=== PATIENT | female | born 1985 | race Caucasian/White ===

== ENCOUNTER 2025-01-23 07:28 | Outpatient (CLI) | payer OTHER, SELFPAY ==
--- NOTE | ~2025-01-23 | XR_ITS ---
EXAMINATION: XR chest 2V 01/23/2025 07:42 INDICATION: Candidiasis PROCEDURE: 2 view chest COMPARISON: No prior studies for comparison. FINDINGS: The lungs are clear. The cardiomediastinal silhouette is within normal limits. There are no pleural effusions. There is no pneumothorax suspected. IMPRESSION: 1: NO ACUTE CARDIOPULMONARY DISEASE. Reviewed, dictated and finalized at location B.
== END 2025-01-23 07:29 | disposition home or self-care (01) ==
LOC: MICIMG 07:32
PROVIDERS: PCP Physician Assistant; Visit Provider Physician Assistant
DX: B37.9 Candidiasis, unspecified (principal); R22.1 Localized swelling, mass and lump, neck
CPT/HCPCS: 71046

== ENCOUNTER 2025-01-23 12:44 | Outpatient (CLI) | payer OTHER, SELFPAY ==
--- NOTE | ~2025-01-23 | CT_ITS ---
CT scan of the Neck Technique: 2.5 mm axial scans were obtained through the neck after intravenous administration of 75 c c Omnipaque 350. Coronal and sagittal reconstructions of the neck were obtained. Dose reduction techn ique was used on this scan by utilizing automated exposure control and iterative reconstruction techn ique. The dose-length product (DLP) was 438.31 mGy-cm. Clinical History: Neck swelling Findings: There is no evidence of any significant cervical lymphadenopathy. Several small, nonenlarged jugulo- digastric and posterior cervical lymph nodes are noted bilaterally. Parapharyngeal spaces appear norm al bilaterally. The parotid and submandibular glands appear normal. The pharyngeal mucosal spaces appear normal. No soft tissue masses are seen in the neck. The thyroid gland appears normal. Images of the lung apices reveal no abnormalities. Impression: No significant abnormalities noted. Reviewed, dictated and finalized at [facility]. Impression: No significant abnormalities noted.
--- OUTSIDE RECORDS SUMMARY | 2025-01-23 12:59 | XMS_ITS | Encounter Summary ---
[facility] Organization [facility] Address [address] [place] [address] Care Team Providers Care Public Relations Name Role Phone Unavailable Primary Care Provider Unavailabl e Encounter Details Date Type Department Care Team (Late st Contact Info) Description 01/21/2025 External Device Data STL ABSTRACTION Provider, Abstract NO ADDRESS ON FILE Social History Tobacco Use Types Packs/Day Years Used Date Smoking Tobacco: Never Passive Smoke Exposure: Never Smokeless Tobacco: Never Alcohol Use Standard Drinks/Week Comments Never 0 (1 standard drink = 0.6 oz pur e alcohol) Comments No Sex and Gender Information Value Date Recorded Sex Assigned at Not on file Legal Sex Female 2:57 PM EXPLOSIVES HANDLER Gender Identity Not on file Sexual Orientation Not on file documented as of this encounter Plan of Treatment Not on file documented as of this encounter Visit Diagnoses Not on filedocumented in this encounter
--- OUTSIDE RECORDS SUMMARY | 2025-01-23 13:00 | XMS_ITS | Clinical Summary ---
Author Organization [facility] [address] Address [address] [place] [phone] Care Team Providers Care Podiatry Doctor Name Role Phone No, Physician Unavailable Cj Vance DISK RECORDIST Primary Care Provide r Allergies No known active allergies Medications methylPREDNISol one (MEDROL DOSEPACK) 4 mg Dosepack Take as directed on package. 21 tablet 5 Active Additional Information Patient not taking.Reported on 12/20/2024 nystatin 100,000 unit/mL suspension Take 5 mL (500,000 Units total) by mouth 4 (four) times a day for 7 days 140 mL 5 12/28/19 25 nystatin 100,000 unit/mL suspension Take 5 mL (500,000 Units total) by mouth 4 (four) times a day for 10 days 200 mL 5 01/11/20 25 Active Problems No known active problems Encounters Date Type Department Care Team Description 12/20/2024 10:00 AM CDT Therapy [facility] Otolaryngology [address] [facility] [address] [place] [phone] Yolanda Cintron, FUNMILAYO Dysphonia (Primary Dx); Throat pain 12/20/2024 10:00 AM CDT Office Visit [facility] E[facility] [address] [facility] [address] [place] [address] Camden Mclean MD Throat pain; Dysphonia; Globus sensation 12/17/2024 Telephone Center [facility] - [facility] E[facility] [address] [facility] [address] [place] [address] [place] [phone] Kathia Smith, MS 12/13/2024 Telephone Center [facility] ([facility] - [facility] ENT [address] [facility] [address] [place] [address] [place] [phone] Kathia Smith, MS 12/04/2024 Patient Self-Triage [facility] [address] [place] [phone] Mychart, Generic Provider 11/19/2024 6:15 AM TACK COVERER Telemedicine [facility] [address] [place] [phone] Angie Jeff NP Facial swelling (Primary Dx); Sore throat 11/19/2024 Patient Self-Triage [facility] [address] [place] [phone] Mychart, Generic Provider from Last 3 Months Social History Tobacco Use Types Packs/Day Years Used Date Smoking Tobacco: Never Smokeless Tobacco: Never Tobacco Cessation:Counseling Given: Not Answered Comments No Sex and Gender Information Value Date Recorded Sex Assigned at Not on file Legal Sex Female 10:21 PM TACK COVERER Gender Identity Not on file Sexual Orientation Not on file Obstetrics History Last Filed Vital Signs Vital Sign Reading Time Taken Comments Blood Pressure 124/92 10/20/2024 8:05 AM TACK COVERER Pulse 89 12/20/2024 10:29 AM CDT Temperature 37 C (98.6 F) 10/20/2024 8:05 AM TACK COVERER Respiratory Rate 20 10/20/2024 8:05 AM TACK COVERER Oxygen Saturation 98% 12/20/2024 10:29 AM CDT Inhaled Oxygen Concentration - - Weight 81.6 kg (180 lb) 12/20/2024 10:29 AM CDT Height 157.5 cm (5' 2 ) 12/20/2024 10:29 AM CDT Body Mass Index 32.92 12/20/2024 10:29 AM CDT Plan of Treatment Health Maintenance Due Date Last Done Comments Depression Screening 1987 Hepatitis C Screening 1987 Varicella Vaccines (1 of 2 - 13+ 2-dose series) 2000 Hepatitis B Screening 2005 Cervical Cancer Screening 11/29/2020 11/29/2019 Regular Well Visit/Exam 18-64 11/29/2020 11/29/2019 Influenza Vaccine (Season Ended) 2025 DTaP/Tdap/Td Vaccine (2 - Td or Tdap) 01/10/2032 01/09/2022 HPV Vaccines Aged Out No longer eligi ble based on patient's age to complete this topic Pneumococcal vaccine <65 Aged Out No longer eligible based on patient's age to complete this topic Procedures Procedure Name Priority Date/Time Associated Diagnosis Comments PAP IG, HPV-HR Routine 11/29/2019 3:04 PM TACK COVERER Screening for malignant neoplasm of the cervix from Last 3 Months or Most Recently Relevant to Health Maintenance Results * Pap IG, HPV-hr (11/29/2019 3:04 PM TACK COVERER) Clinical indication Comment [facility] - 01 Comment:NEGATIVE FOR INTRAEP ITHELIAL LESION OR MALIGNANCY. Specimen adequacy: Comment [facility] - 01 Comment: Satisfactory for evaluation. Endocervical and/or squamous metaplastic cells (endocervical component) are present. Clinician provided ICD10 Comment [facility] - 01 Comment:Z12.4 Performed by Comment [facility] - 01 Comment:Simone Johnson, Public Information Relations Manager (ASCP) . . [facility] - 01 Note: Comment [facility] - 01 Comment: The Pap smear is a screening test designed to aid in the detection of premalignant and malignant conditions of the uterine cervix. It is not a diagnostic procedure and should not be used as the sole means of detecting cervical cancer. Both false-positive and false-negative reports do occur. Test methodology Comment [facility] - 01 Comment: This liquid based ThinPrep(R) pap test was screened with the use of an image guided system. HPV, high-risk Negative Negative [facility] 02 Comment: This nucleic acid amplification high-risk HPV test detects thirteen high-risk types (16,18,31,33,35,39,45,51,52,56,58,59,68) without differentiation. Cervical 11/29/2019 3:04 PM TACK COVERER 11/29/2019 Narrative [facility] - 12/03/2019 10:06 PM TACK COVERER Performed at: - [facility] [id number] Environmental Safety Specialist: Annamaria Hood MD, Phone: [phone] Performed at: - [facility] [id number] Environmental Safety Specialist: Annamaria Hood MD, Phone: [phone] Specimen Comment: No. of containers..01 ThinPrep Vial Harman Miramontes MD LAB PATHOLOGY ORDERABLES Final Result [facility] - 01 [facility] 02 from Last 3 Months or Most Recently Relevant to Health Maintenance Insurance [facility] HMO/PPO Address: [facility] [address] [place] [address] [facility] HMO/PPO Address: [address] [address] [place] [address] [facility] HMO/PPO Address: [address] [address] [place] [id number] [facility] HMO/PPO Address: [address] [address] [place] [phone] Care Teams Podiatry Doctor Relationship Specialty Start Date End Date Cj Vance NP [address] [place] [address] PCP - General Nurse Practitioner 12/12/24 No, Physician 10/19/24
--- OUTSIDE RECORDS SUMMARY | 2025-01-23 13:00 | XMS_ITS | Data Portability ---
Author Organization [facility] [place] Address [address] [place] [address] [address] [place] [address] Care Team Providers Care Stave Block Splitter Name Role Phone JODEE CUNNINGHAM Primary Care Provider Assessment No assessment recorded. Plan of Treatment Reminders Order Date Submit Date Provider Last Modified By Organization Details Last Modified Time Details Appointments None recorded . Lab pregnanc y test, urine 2022 023 [facility], [address], [address], [place], [address], 3 15:10:16 urinalys is, dipstick 2022 023 [facility] [place], [address], [address], [place], [address], 3 15:10:16 Referral None recorded . Procedures None recorded . Surgeries None recorded . Imaging US, pelvis, complete 2022 023 armida [place], [address], [address], [place], [address], 3 12:20:17 US, pelvis [address], [address], [address], [place], [address], 3 20:37:17 US, transvag inal 2022 023 teresita [place], [address], [place], [address], 20:37:17 Medication Orders None recorded . Patient TargetsNo targets recorded. Patient InstructionsNo instructions recorded. Reason for Referral None Reported. Results Created Date Observation Date Name Description Value Unit Range Abnormal Flag Note LastModifiedBy Organization Detail LastModifiedTime 04/20/20 23 04/20/2023 urina lysis , dipst ick Leukocytes neg Not Available [facility] [address], [place], [address], 04/20/2023 15:09:45 04/20/20 23 04/20/2023 urina lysis , dipst ick Nitrite neg Not Available [place] [address], [place], [address], 04/20/2023 15:09:45 04/20/20 23 04/20/2023 urina lysis , dipst ick Urobilinogen neg Not Available [facility] juliocesar [address], [place], [address], 04/20/2023 15:09:45 04/20/20 23 04/20/2023 urina lysis , dipst ick Protein neg Not Available [place] [address], [place], [address], 04/20/2023 15:09:45 04/20/20 23 04/20/2023 urina lysis , dipst ick pH 5 Not Available [place] [address], [place], [address], 04/20/2023 15:09:45 04/20/20 23 04/20/2023 urina lysis , dipst ick Specific [employer] 1.005 Not Available [facility] dave [address], [place], [address], 04/20/2023 15:09:45 04/20/20 23 04/20/2023 urina lysis , dipst ick Ketone neg Not Available [place] [address], [place], [address], 04/20/2023 15:09:45 04/20/20 23 04/20/2023 urina lysis , dipst ick Bilirubin neg Not Available [facility] [address], [place], [address], 04/20/2023 15:09:45 04/20/20 23 04/20/2023 urina lysis , dipst ick Glucose neg Not Available [place] [address], [place], [address], 04/20/2023 15:09:45 04/20/20 23 04/20/2023 urina lysis , dipst ick Appearance clear yellow Not Available [place] [address], [place], [address], 04/20/2023 15:09:45 04/20/20 23 04/20/2023 pregn anne test, urine HCG negati ve Not Available [place] [address], [place], [address], 04/20/2023 15:09:34 04/24/20 23 04/24/2023 US, pelvi s No observ ation record ed. [facility] [address], [place], [address], 04/24/2023 12:38:43 04/24/20 23 04/24/2023 US, trans vagin al No observ ation record ed. [facility] [address], [place], [address], 04/24/2023 12:38:54 04/24/20 23 04/24/2023 US, pelvi s No observ ation record ed. lukas [address], [place], [address], 04/26/2023 17:28:00 Result Notes None recorded. Procedures Surgical History Date Name Laterality Status Provider Name and Address Organization Details Recorded Time Date of Last Pap [facility]ear [facility]20[facility]2023 14:32:43 Imaging Results Imaging Date Name Status LastModified by Organization Details LastModified Time 04/24/2023 US, pelvis completed [facility] [address], [place], [address], 04/24/2023 12:38:43 04/24/2023 [facility] [address], [place], [address], 04/24/2023 12:38:54 04/24/2023 US, pelvis completed lukas Lew[address], [place], [address], 04/26/2023 17:28:00 Procedure Notes None recorded. Medical Equipment None Reported. Allergies No known drug allergies Medications Name Sig Start Date Stop Date Status Note LastModified by Organization Details LastModified Time metronidazole 500 mg tablet Take 1 tablet every 12 hours by oral route for 7 days. 2022 active Not Available Not Available Not Avai lable Vitals Date Recorded Body height Body mass index (BMI) Body weight Systolic blood pressure Diastolic blood pressure Provider Name and Address Organization Details Last Updated DateTime 04/20/2023 162.56 cm 27.6 kg/m2 21061.37 g 124 mm[Hg] 82 mm[Hg] Reyna Badillophillip [facility] 14:53:49 Date Recorded Body height Body mass index (BMI) Body weight Systolic blood pressure Diastolic blood pressure Provider Name and Address Organization Details Last Updated DateTime 04/26/2023 162.56 cm 27.4 kg/m2 02889.62 g 133 mm[Hg] 84 mm[Hg] Pam Barillas [facility] 16:55:06 Social History Question Answer Notes LastModified by Organizat ion Details LastModified Time Tobacco Smoking Status Never Smoker Karon Burton naila, [facility] 04/24/2023 10:53:36 What Is Your Level Of Alcohol Consumption? None Information not available 04/20/2023 How Many Years Have You Consumed Alcohol? 0 Information not available 04/20/2023 Are You Blind Or Do You Have Difficulty Seeing? No Information n ot available 04/20/2023 What Is Your Level Of Caffeine Consumption? Heavy Information not available 04/20/2023 How Much Tobacco Do You Chew? None Information not available 04/20/2023 In The 14 Days Before Symptom Onset, Have You Had Close Contact With A Laboratory-confirm ed COVID-19 While That Case Was Ill? No Information n ot available 04/20/2023 In The 14 Days Before Symptom Onset, Have You Had Close Contact With A Person Who Is Under Investigation For COVID-19 While That Person Was Ill? No Information not available 04/20/2023 Have You Been To An Area Known To Be High Risk For COVID-19? No Information not available 04/20/2023 Are You Deaf Or Do You Have Serious Difficulty Hearing? No Information not available 04/20/2023 What Type Of Diet Are You Following? REGULAR Information n ot available 04/20/2023 What Is The Highest Grade Or Level Of School You Have Completed Or The Highest Degree You Have Received? 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 No Information not available 04/20/2023 Do You Use Protection During Sex? Usually Information not available 04/20/2023 Do You Use Your Seat Belt Or Car Seat Routinely? Yes Information not available 04/20/2023 Do You Have Smoke And Carbon Monoxide Detectors In Your Home? No Information not available 04/20/2023 How Much Tobacco Do You Smoke? No Information not available 04/20/2023 Do You Feel Stressed (tense, Restless, Nervous, Or Anxious, Or Unable To Sleep At Night)? [id number] Information not available 04/20/2023 Do You Use Any Illicit Or Recreational Drugs? No Information not available 04/20/2023 Do You Use Sunscreen Routinely? Yes Information not available 04/20/2023 How Many Years Have You Smoked Tobacco? 0 Information not available 04/20/2023 Sex: Unknown Functional Status Question Answer Note LastModified by Organizat ion Details LastModified Time Do you have difficulty walking or climbing stairs? No [email or web address] Information not available 04/24/2023 Are you able to walk? YESWOREST Information not available 04/20/2023 Are you able to care for yourself? Yes [email or web address] Information not available 04/24/2023 Do you have difficulty dressing or bathing? No [email or web address] Information not available 04/24/2023 What is your exercise level? Moderate Information not available 04/20/2023 Mental Status None recorded. Family History Nothing Reported. Medical History Condition Response Allergies (Food, seasonal, environmental ) N Other N Breast Cancer N Drug/Latex Allergies/Reactions N Blood Transfusion N Dermatologic Disorders N Lung Disease N Defects or Inherited Disease N Breast Problem N Gestational Diabetes N Hematologic disorders N Anesthesia Complications N History of STI N Deep Vein Thrombosis N Polycystic ovary syndrome N Anxiety Disorder N Autoimmune disease N Arthritis N Infertility N Polyps N Acid Reflux (GERD) N History of abnormal pap N Cancer N Stroke N Varicosities N Neurologic/Epilepsy N Endometriosis N High Cholesterol N Headaches N Fibromyalgia N Kidney Disease N Heart Problems N Kidney or Bladder Problems N Thyroid Problems N GI Problems N Eating Disorder N Anemia N Art (IVF or FET) N Psychiatric Illness N Ovarian Cancer N Diabetes N Pulmonary (TB, Asthma) N Hepatitis/Liver Disease N No Past Medical History N Eczema N Urinary Tract Infection N Abuse/Domestic Violence N Asthma N Trauma/Violence N Depression/ depression N Heart Disease N Pre-Eclampsia N Hypertension N Osteoporosis N Thrombophilias N Gynecological History Statement/Question Response Flow Moderate Date of LMP 04/06/2023 On BCP's at Conception? N N Was last menstrual period normal Y STIs/STDs N HPV Vaccine N Duration of Flow (days) 3 Current Control Method None Frequency of Cycle (Q days) 28 Sexually Active? Y Age of first menstrual cycle 14 Date of Last Pap Smear 04/22/2019 Sexual Problems? Yes Desired Control Method None LMP Approximate N Obstetrics History GPAL:G 1 P 0 0 1 0 Type Value Induced 1 Total 1 Past Encounters Encounter ID Performer Location Encounter Start Date Encounter Closed Date Diagnosis/Indication Diagnosis SNOMED-CT Code Diagnosis ICD10 Code Diagnosis Note [id number] NANY Kennedy [place] [address],[facility] [place] [address] 04/20/2023 14:22:11 04/21/2023 16:40:15 Pain in pelvis 81084064 R10.2 This patient is a 37 -year-old female with pelvic pain. We have agreed to complete the evaluation with pelvic ultrasound . The patient will return after the pelvic ultrasound to discuss those findings and to develop a treatment plan. A comprehens torsten history and physical exam was performed today. We spent over 25 minutes face-to-fa ce. The patient was given precaution s. She will contact clinic if pelvic pain increases in frequency or intensity. Also notify clinic of any new symptoms associated with pelvic pain. She does not appear to have an acute pelvic infection today, but was asked to contact us Immediatel y with nausea, vomiting, fever, chills.RTC for pelvic u/s and f/u [id number] Simran [facility] [address] [address] 04/24/2023 10:53:28 04/24/2023 11:47:26 Pain in pelvis 51340227 R10.2 [id number] NANY Kennedy [place] [address],[facility] [place] [address] 04/26/2023 16:48:43 04/26/2023 17:18:12 Pain in pelvis 50859441 R10.2 reviewed updated TVUS - left ovarian follicle with mild complexity her symptoms have resolvedre commend repeat u/s in 8 weeks to check for resolution encouraged to schedule WWE Time spent in visit is a total of 20 mins with at least 50% of visit consisting of counseling and review of plan of care. Health Concerns Section Related Observation LastModified by Organization Detai ls LastModified Time None Recorded Concern Status LastModified by Organization Details LastModified Time None Recorded Advance Directives Directive None Recorded Payers Encounter Date Sequence Insurance Name Policy Number Policy Kern Covered Member ID Kern Member ID Guarantor Name 04/20/[address] [facility] Marbella [place] Joe [id number] Marbella Joe 04/24/[address] [facility] Marbella [place] Joe [id number] Marbella Diaz 04/26/[address] [facility] Marbella [place] Joe [id number] Marbella Diaz Notes Date Note Type Note Provider Name and Address Organization Details Recorded Time 04/20/2023 text/html 37yo [id number] for evaluation of pelvic painright sided pelvic pain x 1 monthnoticed pain after weight lifting at the gy[facility] her PCP and had normal imaging per patientpain comes and goes, dull acheneg n/v/fneg vaginal symptomsnormal bowel movementsneg urinary symptoms NANY Kennedy [address], [place], [address], [facility] 04/21/2023 11:34:49 04/26/2023 text/html 37yopresents for pelvic u/s f/ushe is no longer experiencing any symptoms NANY Kennedy [address], [place], [address], [facility] 04/26/2023 17:08:26 OBGyn Episode Ob Episode Information Episode Created Date Number of Fetuses Patient Bloodtype Patient rh Status Prepregnancy Weight lbs Domestic Partner Domestic Partner Phone Father Name Environmental Services Aide Status 04/20/20 23 1 CLOSED Fetus Data First Name Last Name Admitted to NICU Weight (g) Sex Living Outcome Pediatric Complications Fetus ID Race Codes Race Delivery Type Rangel Calculation Initial Rangel Date Initial Exam Date Initial Exam Provider Initial Ultrasound Date Last Menstrual Period Date Ultra Sound Weeks Gestation 0 Eighteen To Twenty Week Rangel Update Ultra Sound Date Fundal Height At Umbil Quickening Date Ultra Sound Latest Weeks Gestation Final Rangel Confirmed By Final Rangel Confirmed Date Final Rangel Date Ultra Sound Latest Days Gestation 0 0 Menstrual History Last Menstrual Date Menses Monthly On Bcp Conception Prior Menses Frequency Hcg Plus Date Menarche Onset Age Delivery Information Delivery Date Delivery Type Labor Anesthesia Weeks Gestation Incision Type Labor Labor Length Hrs Delivered By Post Complications Tubal Sterilization Discharge Date Comments 6 Discharge Information Feeding Method Contraceptive Method Maternal HG B and HCT Levels
--- OUTSIDE RECORDS SUMMARY | 2025-01-23 13:00 | XMS_ITS | Patient Health Record ---
Author Organization [facility] Address [address] [place] [address] Care Team Providers Care Chiropractic Neurologist Name Role Phone [facility] Unavailable [phone] ANN-MARIE FOREMAN Unavailable [phone] GERMAN WONG Unavailable [phone] COLLEEN ROGERS Unavailable [phone] Allergies No Known Allergies Reason For Referral Reason Please evaluate and treat Diagnosis 1 Vaginal discharge (N 89.8) Referral Organization [facility] Referring Provider First Name GERMAN Referring Provider Last Name MARVIN Referring Provider Speciality General Pr actice Referred Provider Specialty OB - Gynecol ogy General Notes Ceferino Wren 2023 04:59:09 PM >EMAILED PT Referral Priority Routine Referral Appointment Date 06/11/2024 Medications Medication SIG (Take, Route, Frequency, Duration) Notes Start Date End Date Status Lomaira 8 MG TAKE 1 TABLET BY KUNAL TH , 30 MINUTES BEFORE A MEAL, 3 TIMES PER DAY Oral for 30 Days Active tiZANidine HCl 4 MG 1 tablet at bedtime as needed Orally Once a day for 5 days 02/18/2024 Unknown Clotrimazole-Betamethasone 1-0.05 % 1 application Externally Twice a day for 7 days 02/18/2024 Unknown methylPREDNISolone 4 MG as directed Oral ly DAILY for 6 days 02/18/2024 Unknown Fluconazole 150 MG 1 tablet Orally Once every 73 hours for 9 days 02/18/2024 Unknown Fluconazole 100 MG 1 tablet Orally sheila y for 1 days 09/27/2024 Active Meloxicam 7.5 MG 1 tablet Orally Once a day for 15 days 02/18/2024 Unknown Nystatin 517081 UNIT/ML 4 mL Mouth/Throa t Four times a day for 7 days 09/27/2024 Active Buprenorphine HCl 8 MG Sublingual for 30 Days Unknown Phentermine HCl 37.5 MG Oral for 31 Days Unknown metroNIDAZOLE 500 MG 1 tablet Orally Twi ce a day for 7 days 06/11/2024 Active Naproxen Sodium 550 MG Oral for 7 Days Unknown Social History Tobacco Use: Social History Observation Description Date Details (start date - stop date) Never Smoker NA - NA Tobacco Control (Standard) Question Answer Notes Tobacco use: Nonsmoker Vital Signs Height 63 in 09/27/2024 Patient Reported Normal Blood Pressure Patient Reported Normal Temperature Weight 195 lbs 09/27/2024 Patient Reported Normal Blood Pressure Patient Reported Normal Temperature BMI 34.54 kg/m2 09/27/2024 Patient Reported Normal Blood Pressure Patient Reported Normal Temperature Encounters Encounter Location Date Provider Diagnosis [facility] [address] [place] [address] 02/18/2024 ANN-MARIE SAGHIR Neck pain M54.2 and Vaginal itching N89.8 [facility] [address] [place] [address] 03/09/2024 COLLEEN KEN Abdominal pain, unspecified abdominal location R10.9 [facility] [address] [place] [address] 06/11/2024 GERMAN DURINKA Vaginal discharge N89.8 [facility] [address] [place] [address] 09/27/2024 GERMAN DURINKA Oral thrush B37.0 Assessments Encounter Date Diagnosis (ICD Code) Assessment Notes Treatment Notes Treatment Clinical Notes Section Notes 02/18/2024 Neck pain (ICD-10 - M54.2) TREATMENT PLAN Patient presents with likely musculoskeletal pain. There are no new neurologic symptoms this patient is reporting requiring urgent in-person evaluation. Pain appears to be most likely musculoskeletal but there may be a component of nerve pain present in this complex scenario. We can only provide supportive care that focuses on MSK pain. 1. We have provided meloxicam as needed for a short course (dont take other NSAIDS with this like ibuprofen/aleve/ naproxen) and an oral steroids. 2. If localized pain, particularly at a joint or local muscle area, try over the counter topical diclofenac 1% gel a few times per day. Lidocaine patches, ice/hot patches may also help over the counter. 5. Please followup with your PCP or an in-person physician for any imaging or stronger medications.[facility] EDUCATION: NECK PAIN Your Care Instructions You can have neck pain anywhere from the bottom of your head to the top of your shoulders. It can spread to the upper back or arms. Injuries, painting a ceiling, sleeping with your neck twisted, staying in one position for too long, and many other activities can cause neck pain. Most neck pain gets better with home care. Your doctor may recommend medicine to relieve pain or relax your muscles. He or she may suggest exercise and physical therapy to increase flexibility and relieve stress. You may need to wear a special (cervical) collar to support your neck for a day or two. Follow-up care is a darby part of your treatment and safety. Be sure to make and go to all appointments, and call your doctor if you are having problems. It's also a good idea to know your test results and keep a list of the medicines you take. How can you care for yourself at home? Try using a heating pad on a low or medium setting for 15 to 20 minutes every 2 or 3 hours. Try a warm shower in place of one session with the heating pad. You can also try an ice pack for 10 to 15 minutes every 2 to 3 hours. Put a thin cloth between the ice and your skin. Take pain medicines exactly as directed. If the doctor gave you a prescription medicine for pain, take it as prescribed. If you are not taking a prescription pain medicine, ask your doctor if you can take an dymv-wtz-jxzqisq medicine. If your doctor recommends a cervical collar, wear it exactly as directed. When should you call for help? Call your doctor now or seek immediate medical care if: You have new or worsening numbness in your arms, buttocks or legs. You have new or worsening weakness in your arms or legs. (This could make it hard to stand up.) You lose control of your bladder or bowels. Watch closely for changes in your health, and be sure to contact your doctor if: Your neck pain is getting worse. You are not getting better after 1 week. You do not get better as expected. 02/18/2024 Vaginal itching (ICD-10 - N89.8) TREATMENT PLAN: FEMALE Patient here with vaginal irritative symptoms. Her symptoms are suspected to be most likely consistent with a vaginal yeast infection based on the symptoms provided in this limited form of medical care. History is limited to what is provided by the patient. 1. Will treat with fluconazole 150mg once now followed by additional doses once every 72 hours. 2. If symptoms do not improve, please let us know as we can then obtain further testing such as urinalysis or STD testing, if indicated, or choose a different treatment modaility based on symptoms. 3. If sexually active at all, always obtain testing prior to taking new medication we will prescribe.PATIEN T EDUCATION Your Care Instructions Candidiasis (say oxj-rks-JO-uh-s us ) is a yeast infection. Yeast normally lives in your body. But it can cause problems if your body's defenses don't work as they should. Some medicines can increase your chance of getting a yeast infection. These include antibiotics, steroids, and cancer drugs. And some diseases like AIDS and diabetes can make you more likely to get yeast infections. There are different types of yeast infections. Thrush is a yeast infection in the mouth. It usually occurs in people with weak immune systems. It causes white patches inside the mouth and throat. Yeast infections of the skin usually occur in skin folds where the skin stays moist. They cause red, oozing patches on your skin. Babies can get these infections under the diaper. People who often wear gloves can get them on their hands. Many women get vaginal yeast infections. They are most common when women take antibiotics. These infections can cause the vagina to itch and burn. They also cause white discharge that looks like cottage cheese. In rare cases, yeast infects the blood. This can cause serious disease. This kind of infection is treated with medicine given through a needle into a vein (I.V.). After you start treatment, a yeast infection usually goes away quickly. But if your immune system is weak, the infection may come back. Tell your doctor if you get yeast infections often. Follow-up care is a darby part of your treatment and safety. Be sure to make and go to all appointments, and call your doctor if you are having problems. It's also a good idea to know your test results and keep a list of the medicines you take. How can you care for yourself at home? Take your medicines exactly as prescribed. Call your doctor if you think you are having a problem with your medicine. Use antibiotics only as directed by your doctor. Eat yogurt with live cultures. It has bacteria called lactobacillus. It may help prevent some types of yeast infections. Keep your skin clean and dry. Put powder on moist places. If you are using a cream or suppository to treat a vaginal yeast infection, don't use condoms or a diaphragm. Use a different type of control. Eat a healthy diet and get regular exercise. This will help keep your immune system strong. When should you call for help? Watch closely for changes in your health, and be sure to contact your doctor if: You do not get better as expected. 03/09/2024 Abdominal pain, unspecified abdominal location (ICD-10 - R10.9) Unable to assess or treat your symptoms using this asynchronous platform. Please seek in person care at your nearest health clinic for further evaluation. 06/11/2024 Vaginal discharge (ICD-10 - N89.8) TREATMENT PLAN: METRONIDAZOLE MEDICATION Patient presents with symptoms consistent with possible bacterial vaginosis. She has not reported positive STI test. Her medical history and symptoms are limited to what is provided. There are no high risk symptoms reported that require urgent evaluation in person based on what is provided. She has not reported . 1. Will treat with metronidazole 500mg twice daily for 7 days. 2. If patient has any risk factors for STD (sexually active at all), she should consider STD testing, particularly if symptoms do not improve. 3. If sexually active, obtain test prior to starting any medications. 4. Recommend follow up in 3 days.PATIENT EDUCATION: Bacterial vaginosis is a condition in which there is excess growth of certain bacteria that are normally found in the vagina. Symptoms often include abnormal ruiz or yellow discharge with a fishy odor. It is not considered an infection that is spread through sexual contact. Symptoms can be annoying and uncomfortable. But bacterial vaginosis does not usually cause other health problems. However, in some cases it can lead to more serious issues. While bacterial vaginosis may go away on its own, most doctors use antibiotics to treat it. You may have been prescribed pills or vaginal cream. With treatment, bacterial vaginosis usually clears up in 5 to 7 days. Follow-up care is a darby part of your treatment and safety. Be sure to make and go to all appointments, and call your doctor if you are having problems. It's also a good idea to know your test results and keep a list of the medicines you take. How can you care for yourself at home? Take your antibiotics as directed. Do not stop taking them just because you feel better. You need to take the full course of antibiotics. Do not eat or drink anything that contains alcohol if you are taking metronidazole or tinidazole. Keep using your medicine if you start your period. Use pads instead of tampons while using a vaginal cream or suppository. Tampons can absorb the medicine. Wear loose cotton clothing. Do not wear nylon and other materials that hold body heat and moisture close to the skin. Do not scratch. Relieve itching with a cold pack or a cool bath. Do not wash your vulva more than once a day. Use plain water or a mild, unscented soap. Do not douche. When should you call for help? Call your doctor now or seek immediate medical care if: You have a fever. You have new or worse pain in your vagina or pelvis. Watch closely for changes in your health, and be sure to contact your doctor if: You have new or worse vaginal itching or discharge. You have unexpected vaginal bleeding. You are not getting better as expected. Your symptoms return after you finish the course of your medicine. 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 Oral candidiasis: Possible due to fungal nail infection and white/yellow patches on tonsils. 2. Glossitis: Tongue numbness may be related to inflammation of the tongue. 3. Hypothyroidism: Fatigue and sore throat can be associated with thyroid dysfunction. Further evaluation and diagnostic tests are recommended to confirm the diagnosis and provide appropriate treatment. 02/18/2024 Other Follow the treatment plan as indicated by the provider. Take any medications as prescribed. If you have any questions about your prescription, ask the pharmacist. Call 911 anytime you think you may need emergency care. For example, call if:You have severe trouble breathing.You have a seizure.Call your doctor now or seek immediate medical care if:You have trouble breathing.You have a fever with a stiff neck or a severe headache.You have pain or pressure in your chest or belly.You have a fever or cough that returns after getting better.You feel very sleepy, dizzy, or confused.You are not urinating.You have severe muscle pain.You have severe weakness, or you are unsteady.You have medical conditions that are getting worse.Watch closely for changes in your health, and be sure to contact your doctor if:You do not get better as expected.You are having a problem with your medicine. Follow the treatment plan as indicated by the provider. Take any medications as prescribed. If you have any questions about your prescription, ask the pharmacist. Call 911 anytime you think you may need emergency care. For example, call if:You have severe trouble breathing.You have a seizure.Call your doctor now or seek immediate medical care if:You have trouble breathing.You have a fever with a stiff neck or a severe headache.You have pain or pressure in your chest or belly.You have a fever or cough that returns after getting better.You feel very sleepy, dizzy, or confused.You are not urinating.You have severe muscle pain.You have severe weakness, or you are unsteady.You have medical conditions that are getting worse.Watch closely for changes in your health, and be sure to contact your doctor if:You do not get better as expected.You are having a problem with your medicine. You participated in a [employer] [employer] request, considered an asynchronous visit where you provide your symptoms and medical history, and a treatment plan is formulated based on your submission. A treatment plan and patient education were provided based on your submission. If symptoms persist or worsen, you should seek in-person care or call 911 immediately for further evaluation. Risks, benefits, and side effects of medications (if any) discussed with patient, who agreed to the treatment plan.Patient's condition was stable at the end of the televisit. Follow-up instructions provided, including:Cam redding next appointmentKatt lopez symptomsAdhering to treatment planContacting clinic with concernsPatient understood and agreed to comply with the follow-up plan. 03/09/2024 Other Follow the treatment plan as indicated by the provider. Take any medications as prescribed. If you have any questions about your prescription, ask the pharmacist. Call 911 anytime you think you may need emergency care. For example, call if:You have severe trouble breathing.You have a seizure.Call your doctor now or seek immediate medical care if:You have trouble breathing.You have a fever with a stiff neck or a severe headache.You have pain or pressure in your chest or belly.You have a fever or cough that returns after getting better.You feel very sleepy, dizzy, or confused.You are not urinating.You have severe muscle pain.You have severe weakness, or you are unsteady.You have medical conditions that are getting worse.Watch closely for changes in your health, and be sure to contact your doctor if:You do not get better as expected.You are having a problem with your medicine. You participated in a [employer] Rx request, considered an asynchronous visit where you provide your symptoms and medical history, and a treatment plan is formulated based on your submission. A treatment plan and patient education were provided based on your submission. If symptoms persist or worsen, you should seek in-person care or call 911 immediately for further evaluation. 06/11/2024 Other Follow the treatment plan as indicated by the provider. Take any medications as prescribed. If you have any questions about your prescription, ask the pharmacist. Call 911 anytime you think you may need emergency care. For example, call if:You have severe trouble breathing.You have a seizure.Call your doctor now or seek immediate medical care if:You have trouble breathing.You have a fever with a stiff neck or a severe headache.You have pain or pressure in your chest or belly.You have a fever or cough that returns after getting better.You feel very sleepy, dizzy, or confused.You are not urinating.You have severe muscle pain.You have severe weakness, or you are unsteady.You have medical conditions that are getting worse.Watch closely for changes in your health, and be sure to contact your doctor if:You do not get better as expected.You are having a problem with your medicine. You participated in a [employer] Rx request, considered an asynchronous visit where you provide your symptoms and medical history, and a treatment plan is formulated based on your submission. A treatment plan and patient education were provided based on your submission. If symptoms persist or worsen, you should seek in-person care or call 911 immediately for further evaluation. 09/27/2024 Other Follow the treatment plan as indicated by the provider. Take any medications as prescribed. If you have any questions about your prescription, ask the pharmacist. Call 911 anytime you think you may need emergency care. For example, call if:You have severe trouble breathing.You have a seizure.Call your doctor now or seek immediate medical care if:You have trouble breathing.You have a fever with a stiff neck or a severe headache.You have pain or pressure in your chest or belly.You have a fever or cough that returns after getting better.You feel very sleepy, dizzy, or confused.You are not urinating.You have severe muscle pain.You have severe weakness, or you are unsteady.You have medical conditions that are getting worse.Watch closely for changes in your health, and be sure to contact your doctor if:You do not get better as expected.You are having a problem with your medicine. Risks, benefits, and side effects of medications (if any) discussed with patient, who agreed to the treatment plan.Patient's condition was stable at the end of the televisit. Follow-up instructions provided, including:Cam redding next appointmentKatt lopez symptomsAdhering to treatment planContacting clinic with concernsPatient understood and agreed to comply with the follow-up plan. 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 Oral candidiasis: Possible due to fungal nail infection and white/yellow patches on tonsils. 2. Glossitis: Tongue numbness may be related to inflammation of the tongue. 3. Hypothyroidism: Fatigue and sore throat can be associated with thyroid dysfunction. Further evaluation and diagnostic tests are recommended to confirm the diagnosis and provide appropriate treatment. Plan Of Treatment Pending Test Test Name Order Date HCG, TOTAL, QL (8435) 06/11/2024 SureSwab(R) Advanced Bacterial Vaginosis (BV), CT/NG, TMA (86953) 06/11/2024 Insurance Providers Payer Name Payer Address Payer Phone Subscriber Number Group Number Insured Name Patient Relationship to Insured Coverage Start Date Coverage End Date [facility] [address] [address] [place] [address] [phone] [id number] Marbella Diaz Self - patient is the insured
--- OUTSIDE RECORDS SUMMARY | 2025-01-23 13:00 | XMS_ITS | Referral Summary ---
Author Organization [facility] [address] Address [address] [place] [phone] Care Team Providers Care Cardiac Cath Technician Name Role Phone No, Physician Unavailable Cj Vance NP Primary Care Provide r Encounters Date Type Department Care Team Description 12/20/2024 10:00 AM CDT Therapy [facility] [address] [facility] [address] [place] [phone] Yolanda Cintron SLP Dysphonia (Primary Dx); Throat pain 12/20/2024 10:00 AM CDT Office Visit [facility] [address] [facility] Office Building [address] [place] [phone] Camden Mclean MD Throat pain; Dysphonia; Globus sensation 12/17/2024 [facility]phone [facility] - [facility] [address] [facility] [address]th [place] [address] [place] [phone] Kathia Smith, MS 12/13/2024 Telephone [facility] ([facility] - [facility] [address] [facility] [address]th [place] [address] [place] [phone] Kathia Smith, MS 12/04/2024 Patient Self-Triage [facility] HealthCare/ Physicians [facility] [place] [address] Mychart, Generic Provider 11/19/2024 Patient Self-Triage [facility] [address] [place] [address] Mychart, Generic Provider 11/19/2024 6:15 AM ASSESSMENT TECHNICIAN Telemedicine [facility] Medical [facility] Virtual Care [address] [place] [phone] Angie Jeff NP Facial swelling (Primary Dx); Sore throat from Last 3 Months Allergies No known active allergies Medications methylPREDNISol one (MEDROL DOSEPACK) 4 mg Dosepack Take as directed on package. 21 tablet Active Additional Information Patient not taking.Reported on [...] 25 Active Problems No known active problems Social History Tobacco Use Types Packs/Day Years Used Date Smoking Tobacco: Never Smokeless Tobacco: Never Tobacco Cessation:Counseling Given: Not Answered Comments No Sex and Gender Information Value Date Recorded Sex Assigned at Not on file Legal Sex Female 10:21 PM ASSESSMENT TECHNICIAN Gender Identity Not on file Sexual Orientation Not on file Last Filed Vital Signs Vital Sign Reading Time Taken Comments Blood Pressure 124/92 10/20/2024 8:05 AM ASSESSMENT TECHNICIAN Pulse 89 12/20/2024 10:29 AM CDT Temperature 37 C (98.6 F) 10/20/2024 8:05 AM ASSESSMENT TECHNICIAN Respiratory Rate 20 10/20/2024 8:05 AM ASSESSMENT TECHNICIAN Oxygen Saturation 98% 12/20/2024 10:29 AM CDT Inhaled Oxygen Concentration - - Weight 81.6 kg (180 lb) 12/20/2024 10:29 AM CDT Height 157.5 cm (5' 2 ) 12/20/2024 10:29 AM CDT Body Mass Index 32.92 12/20/2024 10:29 AM CDT Plan of Treatment Not on file Procedures Procedure Name Priority Date/Time Associated Diagnosis Comments PAP IG, HPV-HR Routine 11/29/2019 3:04 PM ASSESSMENT TECHNICIAN Screening for malignant neoplasm of the cervix from Last 3 Months or Most Recently Relevant to Health Maintenance Results * Pap IG, HPV-hr (11/29/2019 3:04 PM ASSESSMENT TECHNICIAN) Clinical indication Comment [facility] - 01 Comment:NEGATIVE FOR INTRAEP ITHELIAL LESION OR MALIGNANCY. Specimen adequacy: Comment [facility] - 01 Comment: Satisfactory for evaluation. Endocervical and/or squamous metaplastic cells (endocervical component) are present. Clinician provided ICD10 Comment [facility] - 01 Comment:Z12.4 Performed by Comment [facility] - 01 Comment:Simone Johnson, Director Of Social Media Marketing (ASCP) . . [facility] - 01 Note: [...] (16,18,31,33,35,39,45,51,52,56,58,59,68) without differentiation. Cervical 11/29/2019 3:04 PM ASSESSMENT TECHNICIAN 11/29/2019 Narrative [facility] - 12/03/2019 10:06 PM ASSESSMENT TECHNICIAN Performed at: - [facility] [id number] Cold Patcher: Annamaria Hood MD, Phone: [phone] Performed at: - [facility] [id number] Cold Patcher: Annamaria Hood MD, Phone: [phone] Specimen Comment: No. of containers..01 ThinPrep Vial Harman Miramontes MD LAB PATHOLOGY ORDERABLES Final Result [facility] - 01 LAB [place] 02 from Last 3 Months or Most Recently Relevant to Health Maintenance Insurance [facility] PLUS [facility] PLUS [facility] CHOICE PLUS [facility] CHOICE PLUS Care Teams Cardiac Cath Technician Relationship Specialty Start Date End Date Cj Vance NP [address] [place] [address] PCP - General Nurse Practitioner 12/12/24 No, Physician 10/19/24
--- OUTSIDE RECORDS SUMMARY | 2025-01-23 13:00 | XMS_ITS | Clinical Summary ---
Author Organization [facility] Address [address] [place] [phone] Care Team Providers Care [employer] Dispatcher Name Role Phone Unavailable Primary Care Provider Unavailabl e Allergies No known active allergies Medications nystatin (MYCOSTATIN) 100,000 unit/mL suspension Swish and swallow 5 mL by mouth four times daily 200 mL 10/12/2024 3:46 PM COMPRESSOR OPERATOR 10/12/2024 Active fluconazole (DIFLUCAN) 100 mg tablet Take 2 tablets by mouth as soon as possible on Day 1, Then take 1 tablet once daily for 7 days. 9 Tablet 10/19/2024 12:54 PM COMPRESSOR OPERATOR 10/19/2024 Active Active Problems No known active problems Encounters Date Type Department Care Team Description 01/21/2025 External Device Data [facility] Provider, Abstract 12/25/2024 External Device Data [facility] Provider, Abstract 12/25/2024 External Device Data [facility] Provider, Abstract 12/14/2024 External Device Data [facility] Provider, Abstract 12/13/2024 External Device Data [facility] Provider, Abstract 12/10/2024 External Device Data [facility] Provider, Abstract 11/26/2024 External Device Data [facility] Provider, Abstract 10/31/2024 External Device Data [facility] Provider, Abstract 10/30/2024 External Device Data [facility] Provider, Abstract 10/29/2024 External Device Data [facility] Provider, Abstract from Last 3 Months Social History Tobacco Use Types Packs/Day Years Used Date Smoking Tobacco: Never Passive Smoke Exposure: Never Smokeless Tobacco: Never Tobacco Cessation:Counseling Given: Not Answered Alcohol Use Standard Drinks/Week Comments Never 0 (1 standard drink = 0.6 oz pur e alcohol) Comments No Sex and Gender Information Value Date Recorded Sex Assigned at Not on file Legal Sex Female 2:57 PM COMPRESSOR OPERATOR Gender Identity Not on file Sexual Orientation Not on file Last Filed Vital Signs Vital Sign Reading Time Taken Comments Blood Pressure 128/84 09/23/2024 3:12 PM COMPRESSOR OPERATOR Pulse 79 09/23/2024 3:12 PM COMPRESSOR OPERATOR Temperature 36.8 C (98.2 F) 09/23/2024 3:12 PM COMPRESSOR OPERATOR Respiratory Rate 18 09/23/2024 3:12 PM COMPRESSOR OPERATOR Oxygen Saturation 99% 09/23/2024 3:12 PM COMPRESSOR OPERATOR Inhaled Oxygen Concentration - - Weight 83.9 kg (185 lb) 09/23/2024 3:12 PM COMPRESSOR OPERATOR Height 154.9 cm (5' 1 ) 09/23/2024 3:12 PM COMPRESSOR OPERATOR Body Mass Index 34.96 09/23/2024 3:12 PM COMPRESSOR OPERATOR Plan of Treatment Health Maintenance Due Date Last Done Comments Pre-Diabetes and Diabetes Screening 1987 HEPATITIS B VACCINES (1 of 3 - 19+ 3-dose series) 2006 HPV/Cotest (21-29) 2008 PAP SMEAR 2008 CERVICAL CANCER SCREENING 2017 HPV/Cotest (30-65) 2017 PAP SMEAR 2017 INFLUENZA VACCINE (#1) 2024 DTAP/TDAP/TD VACCINES (2 - T d or Tdap) 01/10/2032 01/09/2022 HPV VACCINES Aged Out No longer eligi ble based on patient's age to complete this topic Insurance Jaree [facility] [id number] [employer] [place] [employer] (INTERNAL) [facility]
--- OUTSIDE RECORDS SUMMARY | 2025-01-23 13:01 | XMS_ITS | Clinical Summary ---
Author Organization [facility] Address [address] [facility] [place] [address] Care Team Providers Care Filler Picker Name Role Phone Unavailable Primary Care Provider Unavailabl e Source Comments [facility],non-owned Affiliates and Associated Physician Practices is amultiple site organization consisting of ambulatory clinics and hospital sitesin [place], [place], [place] and [place]. This disclosure is being madepursuant to the Care Everywhere program and may not contain all information available regarding this patient. Last updated 18.Voice123 Allergies No known active allergies Medications * Be aware that medications may not be up to date on this document. Alwaysverify current medications with the patient. buprenorphine (SUBUTEX) 8 MG tablet DISSOLVE 1 TABLET UNDER THE TONGUE THREE TIMES DAILY ALLOW TABLET TO DISSOLVE SLOWLY IN MOUTH WITHOUT CHEWING OR SWALLOWING 2 Active traZODone (DESYREL) 50 MG tablet Take 50-100 mg by mouth at bedtime 2 Active oxyCODONE-aceta minophen (PERCOCET) 5-325 MG tablet Take 1 (one) tablet by mouth every 6 hours as needed for Pain 20 tablet 2 Active Additional Information Patient not taking.Reported on 01/26/2022 lidocaine (LIDODERM) 5 % patch Apply 1 (one) patch to skin once daily 15 patch 2 Active cyclobenzaprine (FLEXERIL) 10 MG tablet Take 1 (one) tablet by mouth 3 times daily as needed for Muscle Spasms 15 tablet 2 Active diclofenac sodium EC (VOLTAREN) 75 MG tablet Take 1 (one) tablet by mouth 2 times daily as needed 15 tablet 2 Active Immunizations Immunization Administration Dates Next Due HEP A VACCINE, ADULT 09/09/2017 TDAP (7yrs+) 01/09/2022 Social History Tobacco Use Types Packs/Day Years Used Date Smoking Tobacco: Never Smokeless Tobacco: Never Alcohol Use Standard Drinks/Week Comments No 0 (1 standard drink = 0.6 oz pur e alcohol) AUDIT-C Answer Date Recorded Q1: How often do you have a drink containing alc ohol? Never 03/09/2022 Average Number of Drinks Not on file 022 Frequency of Binge Drinking Not on file 10/2021 PHQ-2 Answer Date Recorded PHQ2 TOTAL SCORE 2 03/24/2023 Comments No Sex and Gender Information Value Date Recorded Sex Assigned at Not on file Legal Sex Female 2:09 PM CDT Gender Identity Not on file Sexual Orientation Not on file Last Filed Vital Signs Vital Sign Reading Time Taken Comments Blood Pressure 156/94 07/10/2024 4:01 AM CDT Pulse 88 07/10/2024 4:01 AM CDT Temperature 36.7 C (98 F) 07/10/2024 4:01 AM CDT Respiratory Rate 20 07/10/2024 4:01 AM CDT Oxygen Saturation 96% 07/10/2024 4:01 AM CDT Inhaled Oxygen Concentration - - Weight 77.1 kg (170 lb) 03/24/2023 3:27 PM CDT Height 157.5 cm (5' 2 ) 03/24/2023 3:27 PM CDT Body Mass Index 31.09 03/24/2023 3:27 PM CDT Plan of Treatment Health Maintenance Due Date Last Done Comments PAP SMEAR 1987 HIV SCREENING 2002 HEPATITIS C SCREENING 06/17/2005 HEPATITIS B VACCINE (1 of 3 - 19+ 3-dose series) 2006 HEPATITIS A VACCINE (2 of 2 - Risk 2-dose series) 03/10/2018 09/09/2017 COVID-19 VACCINE (3 - 2023-2 5 season) 2024 07/24/2021, 06/24/2021 DEPRESSION SCREENING 10/09/2024 03/24/2023 INFLUENZA VACCINE (Season Ended) 2025 DTAP/TDAP/TD VACCINES (2 - T d or Tdap) 01/10/2032 01/09/2022 ZOSTER VACCINE (1 of 2) 2037 HIB VACCINE Aged Out No longer eligi ble based on patient's age to complete this topic HPV VACCINE Aged Out No longer eligi ble based on patient's age to complete this topic MENINGOCOCCAL (Group B) VACCINE SHARED DECISION-MAKING Aged Out No longer eligible based on patient's age to complete this topic MENINGOCOCCAL GROUPS A/C/Y/W VACCINE Aged Out No longer eligible b ased on patient's age to complete this topic PNEUMOCOCCAL VACCINE Aged Out No long er eligible based on patient's age to complete this topic Insurance [facility] Member Subscriber Plan / Payer (Ef fective 2022-Present) Name:Marbella Diaz Relation to Subscriber:Self Name:Marbella Diaz Payer ID:[id number] (NAIC) Group ID:Not on file Type:[employer] Address: [address] CARE [facility] [employer]IAN LIABILITY [facility] [employer]
--- OUTSIDE RECORDS SUMMARY | 2025-01-23 13:01 | XMS_ITS ---
Author Organization [facility] Address [address] [place] [address] Care Team Providers Care Insurance Solicitor Name Role Phone GERMAN WONG Unavailable [phone] Allergies No Known Allergies Reason For Referral Reason Please evaluate and treat Diagnosis 1 Vaginal discharge (N 89.8) Referral Organization [facility] Referring Provider First Name GERMAN Referring Provider Last Name MARVIN Referring Provider Speciality General Pr actice Referred Provider Specialty OB - Gynecol ogy General Notes Ceferino Wren 2023 04:59:09 PM >EMAILED PT Referral Priority Routine Referral Appointment Date 06/11/2024 REASON FOR VISIT Sexual Health / Urinary, Patient requesting service from promotional campaign vv Medications Medication SIG (Take, Route, Frequency, Duration) Notes Start Date End Date Status Clotrimazole-Betamethasone 1-0.05 % 1 application Externally Twice a day for 7 days 02/18/2024 Unknown tiZANidine HCl 4 MG 1 tablet at bedtime as needed Orally Once a day for 5 days 02/18/2024 Unknown metroNIDAZOLE 500 MG 1 tablet Orally Twi ce a day for 7 days 06/11/2024 Active Fluconazole 150 MG 1 tablet Orally Once every 73 hours for 9 days 02/18/2024 Unknown Lomaira 8 MG TAKE 1 TABLET BY KUNAL TH , 30 MINUTES BEFORE A MEAL, 3 TIMES PER DAY Oral for 30 Days Active Naproxen Sodium 550 MG Oral for 7 Days Unknown Meloxicam 7.5 MG 1 tablet Orally Once a day for 15 days 02/18/2024 Unknown Phentermine HCl 37.5 MG Oral for 31 Days Unknown methylPREDNISolone 4 MG as directed Oral ly DAILY for 6 days 02/18/2024 Unknown Buprenorphine HCl 8 MG Sublingual for 30 Days Unknown Social History Tobacco Use: Social History Observation Description Date Details (start date - stop date) Never Smoker NA - NA Tobacco Control (Standard) Question Answer Notes Tobacco use: Nonsmoker Vital Signs Height 63 in 06/11/2024 Weight 185 lbs 06/11/2024 BMI 32.77 kg/m2 06/11/2024 Patient Reported Normal Bloo d PresurePatient Reported Normal Temperature Encounters Encounter Location Date Provider Diagnosis [facility] [address] [place] [address] 06/11/2024 GERMAN WONG Vaginal discharge N89.8 Assessments Encounter Date Diagnosis (ICD Code) Assessment Notes Treatment Notes Treatment Clinical Notes Section Notes 06/11/2024 Vaginal discharge (ICD-10 - N89.8) TREATMENT [...] you finish the course of your medicine. 06/11/2024 Other Follow the treatment plan as [...] or call 911 immediately for further evaluation. Plan Of Treatment Medication Medication Name Sig Start Date Stop Date Notes metroNIDAZOLE 500 MG 1 tablet Orally Twi ce a day for 7 days 06/11/2024 Treatment Notes Assessment Notes Vaginal discharge TREATMENT PLAN: METRONIDAZOLE MEDICATION Patient presents with [...] to 7 days. Follow-up care is a dabry part of your treatment and safety. Be [...] you finish the course of your medicine. Other Follow the treatment plan as indicated [...] are having a problem with your medicine. Pending Test Test Name Order Date HCG, TOTAL, QL (8435) 06/11/2024 SureSwab(R) Advanced Bacterial Vaginosis (BV), CT/NG, TMA (72814) 06/11/2024 Referrals Referral Date Details 06/11/2024 06/11/2024, Please e valuate and treat Next Appt Details Follow Up: PCP, 2-3D, Reason : Progress Notes * Jamie DIAZOB:[birth year] (38 yo F)Acc No.[id number]:06/11/2024 Patient: Marbella MULLINS Provider: Chica WONG MD :[id number] A ge:38 Y S ex:Female Date:06/11/2024 Phone: Address:[address] [place], [place] [phone] Subjective: * Chief Complaints: * 1 . Sexual Health / Urinary. 2. Patient requesting service from promotional campaign vv. * HPI: T eleHealth Complaint History: Reason for visit:. 38 year-old female, not (to the best of the patient's knowledge), presents with vaginal discharge for a duration of 1 days. Medications: No. Habits: No high risk sexual behavior. Risk Factors: No recent exposure to allergen. * ROS: A ll Other Systems: Review of Systems (ROS) S ee HPI for details. T he patient is also suffering from vaginal irritation (severity mild), itching (location skin of genitalia) and unusual vaginal odor. The patient denies the following: vaginal burning, abnormal vaginal bleeding, vaginal discomfort, vaginal dryness, curdlike vaginal discharge, fever, rash, scaly skin, skin ulcers, shortness of breath, swelling of face, tongue swelling, pelvic pain and pain when passing urine. * Medical History: D enies. * Surgical History: D enies Past Surgical History. * Hospitalization/Major Diagno stic Procedure: D enies Past Hospitalization. * Family History: DENIES. * Social History: T obacco Use: T obacco Control (Standard) T obacco use: N onsmoker D rugs/Alcohol: D o you drink alcohol?: No. * Medications: T aking Lomaira 8 MG Tablet TAKE 1 TABLET BY MOUTH , 30 MINUTES BEFORE A MEAL, 3 TIMES PER DAY Oral , Unknown Naproxen Sodium 550 MG Tablet Oral , Unknown Buprenorphine HCl 8 MG Tablet Sublingual Sublingual , Unknown Phentermine HCl 37.5 MG Capsule Oral , Unknown Meloxicam 7.5 MG Tablet 1 tablet Orally Once a day , Unknown methylPREDNISolone 4 MG Tablet Therapy Pack as directed Orally DAILY , Unknown Fluconazole 150 MG Tablet 1 tablet Orally Once every 73 hours , Unknown tiZANidine HCl 4 MG Tablet 1 tablet at bedtime as needed Orally Once a day , Unknown Clotrimazole-Betamethasone 1-0.05 % Cream 1 application Externally Twice a day * Allergies: N .K.D.A. Objective: * Vitals: H t: 63 in, Wt:185lbs, BMI:32.77Index. Patient Reported Normal Blood Presure Patient Reported Normal Temperature. * Physical Examination: A synchronous visit, unable to assess. Assessment: * Assessment: 1. V aginal discharge - N89.8 (Primary) Plan: * Treatment: 2. O thers Notes: Follow the treatment plan as indicated by the provider. Take any medications as prescribed. If you have any questions about your prescription, ask the pharmacist. [id number] you think you may need emergency care. For example, call if:You have severe trouble breathing.You have a seizure.Call your doctor nowor seek immediate medical care if:You have trouble [...] are having a problem with your medicine. Clinical Notes:You participated in a [employer] Rx request, considered an asynchronous visit where you provide your symptoms and medical history, and a treatment plan is formulated based on your submission. A treatment plan and patient education were provided based on your submission. If symptoms persist or worsen, you should seek in-person care or call 911 immediately for further evaluation. * Procedure Codes: 8 7491 CHYLMD TRACH, DNA, AMP PROBE, 03236 NFCT DS BV RNA VAG FLU ALG, 88598 N.GONORRHOEAE, RNA, 13668 HCG QL SERUM, MPFEE Wozityouhant / CC Processing Fee, 76966 Office Visit, Est Pt., Level 3, delivered asynchronous, Modifiers: GQ * Follow Up: P CP, 2-3D * Billing Information: * Visit Code: * Procedure Codes: 58296 CHYLMD TRACH, DNA, AMP PROBE. 21335 NFCT DS BV RNA VAG FLU ALG. 90250 N.GONORRHOEAE, RNA. 09578 HCG QL SERUM. MPFEE Merchant / CC Processing Fee. [id number] Office Visit, Est Pt., Level 3, delivered asynchronous. Modifiers: GQ * Sign off status: Completed true * Provider: Chica WONG MD Date: 0 06/11/2024 Generated for Jace lopez/Charmaine/eTransmitting on: 0 01/23/2025 02:00 PM EDT History and Physical Notes * HPI (History of Present Illness) Category Sub-Category Detail Notes Category Not es TeleHealth Complaint History 38 year-old female, not (to the best of the patient's knowledge), presents with vaginal discharge for a duration of 1 days. Medications: No. Habits: No high risk sexual behavior. Risk Factors: No recent exposure to allergen. Physical Examination Category Sub-Category Detail Notes Section Note s Asynchronous vi sit, unable to assess Consultation Request Notes Referral Date Referring Provider Referred Provider Not es 06/11/2024 GERMAN WONG , Please evaluat e and treat
--- OUTSIDE RECORDS SUMMARY | 2025-01-23 13:01 | XMS_ITS ---
Author Organization [facility] Address [address] [place] [address] Care Team Providers Care Machine Stripper Name Role Phone GERMAN WONG Unavailable [phone] Allergies No Known Allergies REASON FOR VISIT 10:30AM, [facility], General Health, Patient requesting service from promotional campaign [email or web address] Medications Medication SIG (Take, Route, Frequency, Duration) Notes Start Date End Date Status tiZANidine HCl 4 MG 1 tablet at bedtime as needed Orally Once a day for 5 days 02/18/2024 Unknown Clotrimazole-Betamethasone 1-0.05 % 1 application Externally Twice a day for 7 days 02/18/2024 Unknown methylPREDNISolone 4 MG as directed Oral ly DAILY for 6 days 02/18/2024 Unknown Fluconazole 150 MG 1 tablet Orally Once every 73 hours for 9 days 02/18/2024 Unknown Meloxicam 7.5 MG 1 tablet Orally Once a day for 15 days 02/18/2024 Unknown Lomaira 8 MG TAKE 1 TABLET BY KUNAL TH , 30 MINUTES BEFORE A MEAL, 3 TIMES PER DAY Oral for 30 Days Active Buprenorphine HCl 8 MG Sublingual for 30 Days Unknown Phentermine HCl 37.5 MG Oral for 31 Days Unknown metroNIDAZOLE 500 MG 1 tablet Orally Twi ce a day for 7 days 06/11/2024 Active Naproxen Sodium 550 MG Oral for 7 Days Unknown Fluconazole 100 MG 1 tablet Orally sheila y for 1 days 09/27/2024 Active Nystatin 112766 UNIT/ML 4 mL Mouth/Throa t Four times a day for 7 days 09/27/2024 Active Social History Tobacco Use: Social History Observation Description Date Details (start date - stop date) Never Smoker NA - NA Tobacco Control (Standard) Question Answer Notes Tobacco use: Nonsmoker Vital Signs Height 63 in 09/27/2024 Weight 195 lbs 09/27/2024 BMI 34.54 kg/m2 09/27/2024 Patient Reported Normal Bloo d PressurePatient Reported Normal Temperature Encounters Encounter Location Date Provider Diagnosis [facility] [address] [place] [address] 09/27/2024 GERMAN WONG Oral thrush B37.0 Assessments Encounter Date Diagnosis (ICD Code) Assessment Notes Treatment Notes Treatment Clinical Notes Section Notes 09/27/2024 Oral thrush (ICD-10 - B37.0) AI [...] confirm the diagnosis and provide appropriate treatment. 09/27/2024 Other Follow the treatment plan as indicated by the provider. Take any medications as prescribed. If you have any questions about your prescription , ask the pharmacist. Call 911 anytime you think you may need emergency care. For example, call if:You have severe trouble breathing.Yo u have a seizure.Call your doctor now or seek immediate medical care if:You have trouble breathing.Yo u have a fever with a stiff neck or a severe headache.You have pain or pressure in your chest or belly.You have a fever or cough that returns after getting better.You feel very sleepy, dizzy, or confused.You are not urinating.Yo u have severe muscle pain.You have severe weakness, [...] end of the televisit. Follow-up instructions provided, including:Scheduling next appointmentMonitoring symptomsAdhering to treatment planContacting clinic with concernsPatient [...] and provide appropriate treatment. Plan Of Treatment Medication Medication Name Sig Start Date Stop Date Notes Fluconazole 100 MG 1 tablet Orally daily for 1 days 2023 Nystatin 421711 UNIT/ML 4 mL Mouth/Throa t Four times a day for 7 days 09/27/2024 Treatment Notes Assessment Notes Other Follow the treatment plan as indicated [...] are having a problem with your medicine. Next Appt Details Follow Up: PCP, Reason: Progress Notes * Jamie DIAZOB:[birth year] (39 yo F)Acc No.[id number]:09/27/2024 Patient: Marbella MULLINS Provider: Chica WONG MD :[id number] A ge:39 Y S ex:Female Date:09/27/2024 Phone: Address:[address] [place], [place] [id number] Subjective: * Chief Complaints: * 1 . 10:30AM, [facility], General Health. 2. Patient requesting service from promotional campaign [email or web address]. * HPI: T Maranda Consent: Patient's identification was confirmed and they were instructed that this visit is based on visual, audio information in addition to previous medical notes and diagnostics. As well it relies on the patient for information related to their physical well being, diagnosis and treatment. The patient acknowledges that they are not being recorded today, and they do not have permission to record this visit either. Patient verbalized understanding to all of the above. T riage: PT IN FOR WHITE PLAQUE ON TONGUE X 2 DAYS. HX OF INVISALIGN USE. NO FEVERS. NO ABX USE OR STEROID USE RECENTLY. NO OTHER ISSUES. T eleHealth Complaint History: 39 year-old female, not , presents with numbness of the tongue for a duration of 14 days. Medical History: Fungal infection of the nails (duration 3 months). Medications: None. Risk Factors: No exposure to ticks, no recent history of upper respiratory infection, no recent ear injury, no exposure to cats, no exposure to a COVID-19 patient within the past 14 days and no immunocompromised. * ROS: A ll Other Systems: Review of Systems (ROS) S HPI for details. T he patient is also suffering from sore throat (severity mild and duration 10 days), painful swallowing (severity mild and duration 7 days), fatigue and white or yellow coating/patches on tonsils. The patient denies the following: rash, inability to wrinkle forehead, dry eyes, muscle weakness of the leg, weakness of one side of body, drooping of side of the mouth, tremors, facial weakness, excessive sweating, heat intolerance, lack of energy to complete day-to-day tasks, palpitations, difficulty keeping eyes open, speech dysfunction, confusion, mood swings, facial pain, hyperactive behavior, headache, difficulty walking, visual disturbances, increased frequency of urination, stuffed-up nose, cough, ulcers in the mouth, difficulty in swallowing, fever, muscle pain and chest pain. * Medical History: * Surgical History: D enies Past Surgical [...] MEAL, 3 TIMES PER DAY Oral , Taking metroNIDAZOLE 500 MG Tablet 1 tablet Orally Twice a day , Unknown Naproxen Sodium 550 MG Tablet [...] Objective: * Vitals: H t: 63 in, Wt:195lbs, BMI:34.54Index. Patient Reported Normal Blood Pressure Patient Reported Normal Temperature. * Examination: G eneral Examination: GENERAL APPEARANCE: i n no acute distress. EARS: h earing grossly intact. NEUROLOGIC: a lert and oriented , speech clear. PSYCH: m ood/affect normal, understands directions. ? * Physical Examination: w sven coating on tongue. Assessment: * Assessment: 1. 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 Plan: * Treatment: 2. O thers Notes: Follow the treatment plan as indicated by the provider. Take any medications as prescribed. If you have any questions about your prescription, ask the pharmacist. Call 911anytime you think you may need emergency care. [...] having a problem with your medicine. Clinical Notes:Risks, benefits, and side effects of medications (if any) discussed with patient, who agreed to the treatment plan.Patient's condition was stable at the end of the televisit. Follow-up instructions provided, including:Scheduling next appointmentMonitoring symptomsAdhering to treatment planContacting clinic with concernsPatient understood and agreed to comply with the follow-up plan. * Procedure Codes: M PFEE Merchant / CC Processing Fee, 27933 Office Visit, Est Pt., Level 3 Virtual Visit, Modifiers: 95 * Follow Up: P CP * Billing Information: * Visit Code: * Procedure Codes: MPFEE Merchant / CC Processing Fee. 60532 Office Visit, Est Pt., Level 3 Virtual Visit. Modifiers: 95 * Sign off status: Completed true * Provider: Chica WONG MD Date: 1 11/28/2023 Generated for Jace lopez/Charmaine/Marzenaitting on: 0 01/23/2025 02:01 PM EDT History and Physical Notes * HPI (History of Present Illness) Category Sub-Category Detail Notes Category Not es TeleHealth Complaint History 39 year-old female, not , presents with numbness of the tongue for a duration of 14 days. Medical History: Fungal infection of the nails (duration 3 months). Medications: None. Risk Factors: No exposure to ticks, no recent history of upper respiratory infection, no recent ear injury, no exposure to cats, no exposure to a COVID-19 patient within the past 14 days and no immunocompromised. Triage PT IN FOR WHITE PLAQUE ON TONGUE X 2 DAYS. HX OF INVISALIGN USE. NO FEVERS. NO ABX USE OR STEROID USE RECENTLY. NO OTHER ISSUES. Physical Examination Category Sub-Category Detail Notes Section Note s white coating o n tongue Examination Category Sub-Category Detail Notes Category Not es General Examination GENERAL APPEARANCE: in no acute di stress EARS: hearing grossly inta ct NEUROLOGIC: alert and oriented , speech clear PSYCH: mood/affect normal, understands directions
[2025-01-23 13:24] LABS: Estimated Glomerular Filt Rate > 60
== END 2025-01-23 12:45 | disposition home or self-care (01) ==
PROVIDERS: PCP Physician Assistant; Visit Provider Physician Assistant
DX: B37.9 Candidiasis, unspecified (principal); R22.1 Localized swelling, mass and lump, neck
CPT/HCPCS: 70491; Q9967